=== PATIENT | female | born 1955 | race Caucasian/White ===

== ENCOUNTER 2024-07-17 12:40 | Observation (INO) ==
[2024-07-17] MEDS: Lactated Ringers 1000 ml BAG 1,000 ML IV ONE (13:59)
[2024-07-17 14:18] LABS: ABS Eosinophils 0.1 10^3/uL (0.0-0.5); ABS Lymphocytes 1.9 10^3/uL (1.0-4.8); ABS Monocytes 0.4 10^3/uL (0.0-0.9); ABS Neutrophils 2.9 10^3/uL (1.5-7.6); Eosinophil % 1.4 %; Hematocrit 40.1 % (35-45); Hemoglobin 13.3 g/dL (11.5-14.3); Lymphocyte % 35.8 %; Mean Corpuscular Hemoglobin 31.4 pg (27-33); Mean Corpuscular Hgb Conc 33.2 g/dL (31-36); Mean Corpuscular Volume 94.5 fL (80-97); Mean Platelet Volume 7.9 fL (7.5-11.2); Nucleated Red Blood Cells % 0.1 %/100WBC (0.0-0.8); Platelet Count 229 10^3/uL (150-450); Red Blood Count 4.24 10^6/uL (3.63-4.92); Red Cell Distribution Width 13.2 % (12-17); White Blood Count 5.4 10^3/uL (3.8-11.8)
[2024-07-17 14:41] LABS: ALT 8 U/L (7-52); AST 15 U/L (13-39); Albumin/Globulin Ratio 1.6 (1-3); Alkaline Phosphatase 90 U/L (35-149); Anion Gap 10 mmol/L (2-16); Blood Urea Nitrogen 14 mg/dL (6-24); C Reactive Protein < 1.00 mg/L (<8.01); CO2 Carbon Dioxide 24 mmol/L (22-32); Calcium 9.6 mg/dL (8.6-10.3); Chloride 105 mmol/L (101-111); Creatinine, Serum 1.26 mg/dL (0.51-0.95); Globulin 2.5 g/dL (2-4); Glucose 97 mg/dL (70-100); Magnesium 2.1 mg/dL (1.9-2.7); Sodium 139 mmol/L (135-145); Total Bilirubin 0.6 mg/dL (0.2-1.0); Total Protein 6.5 g/dL (6.4-8.9); eGFR CKD-EPI 46.5 (>60)
[2024-07-17 15:38] LABS: Urine Appearance Turbid; Urine Bilirubin Negative (Negative); Urine Blood Negative (Negative); Urine Color Yellow; Urine Glucose Negative (Negative); Urine Ketones Negative (Negative); Urine Nitrite 2+ (Negative); Urine Protein 1+ (>=30 mg/dL) (Negative); Urine Specific Gravity 1.027 (1.002-1.030); Urine Urobilinogen Negative (Negative); Urine pH 5.5 (5.0-8.0)
[2024-07-17 15:43] LABS: Urine Bacteria 3+ /HPF (Absent); Urine Red Blood Cell Trace(0-2/hpf) /HPF (0-Trace); Urine Squamous Epithelial Cell Present /HPF (Absent); Urine White Blood Cell 1+(6-10/hpf) /HPF (0-Trace)
[2024-07-17] MEDS: Enoxaparin 40 MG/0.4 ML SYR SUBCUT SCH (17:33)
[2024-07-17] MEDS: cefTRIAXone 1 gm/50 mL D5W 1 GM/50 ML BAG IV SCH (17:33)
[2024-07-17] MEDS: [UNRECOGNIZED DRUG - REMARK] IM SCH (19:09)
[2024-07-18 09:56] LABS: TSH Ultra Thyroid Stim Horm 1.48 mcIU/mL (0.34-5.60)
[2024-07-18 09:58] LABS: Free T4 1.08 ng/dL (0.61-1.12)
[2024-07-18 10:07] LABS: Folate 10.91 ng/mL (5.90-24.80)
[2024-07-18 10:08] LABS: Vitamin B12 > 1450 pg/mL (180-914)
[2024-07-18] MEDS: Gadoteridol (CONTRAST) 279.3 MG/ML 10 ML IV ONE (23:57)
[2024-07-19 09:42] VITALS: BP 138/95
== END 2024-07-19 13:10 | disposition home health service (06) ==
LOC: EDHOLD 12:40 → ED 12:40 → EDHOLD 22:00 → MED 22:06
PROVIDERS: ADMIT Internal Medicine; ATTEND Internal Medicine